=== PATIENT | male | born 1985 | race Caucasian/White ===

== ENCOUNTER 2020-10-13 16:06 | Inpatient (IN) | payer MEDICAID ==
[~2020-10-13] VITALS: Ht 152.4 cm; Wt 85.3 kg
[2020-10-13] MEDS ORDERED: MAGNESIUM HYDROXIDE 30 ML UDC PO PRN (16:30)
[2020-10-13] MEDS ORDERED: Z GUARD REMEDY 2 OZ OINT TP PRN (16:30)
[2020-10-13] MEDS ORDERED: MAG HYDROX/AL HYDROX/SIMETH 30 ML UDC PO PRN (16:30)
[2020-10-13] MEDS ORDERED: ONDANSETRON HCL/PF 4 MG/2 ML VIAL IVP PRN (16:30)
[2020-10-13] MEDS ORDERED: ACETAMINOPHEN 325 MG TABLET PO PRN (16:30)
[2020-10-13] MEDS ORDERED: ZOLPIDEM TARTRATE 5 MG TABLET PO PRN (16:30)
[2020-10-13 17:00] VITALS: BP 148/90
[2020-10-13 17:36] VITALS: BP 148/90
[2020-10-13] MEDS: IV NS 0.9% 1,000 ML IV PRN (17:59)
[2020-10-13] MEDS ORDERED: PIPERACILLIN /TAZOBACTAM 4.5 G in IV D5W 50 ML IV SCH (18:00)
[2020-10-13 20:00] VITALS: BP 141/81
[2020-10-13] MEDS: MORPHINE SULFATE INJ 2 MG/ML DISP.SYRIN IV PRN (20:04)
[2020-10-14] MEDS: MORPHINE SULFATE INJ 2 MG/ML DISP.SYRIN IV PRN (00:25)
[2020-10-14] MEDS: IV NS 0.9% 1,000 ML IV PRN (03:22)
[2020-10-14 06:37] LABS: BASOPHILS # (AUTO) 0.1 K/uL (0.0-0.2); BASOPHILS % (AUTO) 0.7 % (0.0-2.0); EOSINOPHILS % (AUTO) 0.5 % (0.0-6.0); HEMATOCRIT 45 % (39-51); HEMOGLOBIN 15.3 g/dL (13.5-17.5); LYMPHOCYTES # (AUTO) 1.8 K/uL (0.8-4.8); LYMPHOCYTES % (AUTO) 14.3 % (20.0-44.0); MEAN CORPUSCULAR HGB CONC 34 g/dl (31.0-36.0); MEAN CORPUSCULAR VOLUME 86 fL (80-96); NEUTROPHILS # (AUTO) 9.4 K/uL (1.8-8.9); NEUTROPHILS % (AUTO) 76.5 % (43.0-81.0); PLATELET COUNT (AUTO) 329 K/uL (150-450); RED BLOOD CELL COUNT(AUTO) 5.18 MIL/uL (4.5-6.0); WHITE BLOOD COUNT (AUTO) 12.3 K/uL (4.3-11.0)
[2020-10-14 07:04] LABS: ALBUMIN 3.9 g/dL (3.4-5.0); BILIRUBIN,TOTAL 1.5 mg/dL (0.2-1.0); CALCIUM, SERUM 8.1 mg/dL (8.5-10.1); MAGNESIUM 1.9 mg/dL (1.8-2.4); PHOSPHORUS 3.3 mg/dL (2.5-4.9); POTASSIUM 3.8 mmol/L (3.5-5.1); TOTAL PROTEIN, SERUM 7.7 g/dL (6.4-8.2)
--- NOTE | 2020-10-14 07:25 | NUR ---
RN OPENING NOTE RECEIVED PATIENT IN BED. A/O X4. ON ROOM AIR, NO SOB NOTED. IN NO APPARENT DISTRESS. DENIES ANY PAIN OR DISCOMFORT AT THIS TIME. CURRENTLY ON NPO STATUS FOR NM HIDA SCAN. IV ACCESS ON L AC #20 G, NS @ 75 ML/HR, INTACT AND PATENT. SAFETY MEASURES MAINTAINED. BED IN LOWEST POSITION, BRAKES LOCKED. SIDE RAILS UP X2,. CALL LIGHT WITHIN REACH. WILL CONTINUE PLAN OF CARE.
[2020-10-14 08:22] VITALS: BP 136/71
[2020-10-14] MEDS: PIPERACILLIN /TAZOBACTAM 3.375 G in IV D5W 100 ML IV SCH ×4 (08:31→23:18)
--- NOTE | 2020-10-14 09:55 | NUR ---
Patient went for HIDA scan at 9:52am via wheelchair, stable condition, no apparent distress noted, denies any pain or discomfort at this time.
--- NOTE | 2020-10-14 11:30 | NUR ---
Patient came back from HIDA scan around 11:27am, per Abel (from radiology department), gallbladder was not seen at will do a delayed around 2pm, patient to remain NPO and also Morphine cannot be given yet until procedure is done. and patient made aware of the situation. Patient has no complaints of pain at this time, will monitor closely for any changes, all needs attended, call light left within reach.
[2020-10-14 13:12] LABS: BILIRUBIN,DIRECT 0.3 mg/dL (0.0-0.2); BILIRUBIN,TOTAL 1.4 mg/dL (0.2-1.0)
--- NOTE | 2020-10-14 14:05 | NUR ---
Patient went for HIDA scan at 14:04 via wheelchair, stable condition, denies any pain or discomfort at this time.
--- NOTE | 2020-10-14 15:00 | NUR ---
Patient came back from HIDA scan at 15:00 stable condition, no apparent distress, can resume previous diet and advance as tolerated.
[2020-10-14 16:06] VITALS: BP 134/80
--- NOTE | 2020-10-14 18:43 | NUR ---
RN CLOSING NOTES Patient comfortably lying in bed, AOX4, able to follow commands, can make needs known. Respirations even and unlabored, no SOB, no apparent distress, denies any pain or discomfort at this time. Patient now back to clear liquid diet, abdominal bowel sounds present in all quadrants. IV site on L AC #20G with ongoing NS @ 75 ml/hr, intact and patent, no s/s of infiltration noted. Safety measures maintained, bed set in lowest position. All needs attended and met, call light left within reach, will endorse continuity of care to incoming shift.
--- NOTE | 2020-10-14 19:30 | NUR ---
RN OPENING NOTE PATIENT IS IN BED, AWAKE. PATIENT IS ABLE TO MAKE NEEDS KNOWN. TOLERATES ROOM AIR, BREATHING EVEN AND UNLABORED. PATIENT HAS A LEFT AC 20 G RUNNING NS AT 75 ML/HR. PATIENT DOES NOT COMPLAIN OF ANY PAIN AT THIS TIME. SAFETY MEASURES IN PLACE: BED LOCKED AND IN LOWEST POSITION, CALL LIGHT WITHIN REACH, SIDE RAILS UP. WILL MONITOR PATIENT CLOSELY.
[2020-10-14 20:00] VITALS: BP 134/77
--- NOTE | 2020-10-15 07:20 | NUR ---
RN NOTE PATIENT BREATHING EVEN AND UNLABORED, NOT IN ANY APPARENT DISTRESS. SAFETY MEASURES IN PLACE: ENDORSED TO DAY SHIFT NURSE FOR DIANNA.
--- NOTE | 2020-10-15 07:57 | NUR ---
MS/RN OPENING NOTE RECEIVED PATIENT IN BED, A/O X4, JAPANESE SPEAKING. PATIENT IS ABLE TO MAKE NEEDS KNOWN. TOLERATES ROOM AIR, BREATHING EVEN AND UNLABORED. PATIENT HAS A LEFT AC #20G WITH A RUNNING NS AT 75 ML/HR. PATIENT DOES NOT COMPLAIN OF ANY PAIN AT THIS TIME. SAFETY MEASURES IN PLACE: BED LOCKED AND IN LOWEST POSITION, CALL LIGHT WITHIN REACH, SIDE RAILS UP. WILL CONTINUE TO MONITOR.
[2020-10-15 08:00] VITALS: BP 118/66
[2020-10-15] MEDS: PIPERACILLIN /TAZOBACTAM 3.375 G in IV D5W 100 ML IV SCH ×2 (08:36→15:47)
[2020-10-15 13:19] LABS: BASOPHILS # (AUTO) 0.1 K/uL (0.0-0.2); BASOPHILS % (AUTO) 1.1 % (0.0-2.0); EOSINOPHILS % (AUTO) 3.5 % (0.0-6.0); HEMATOCRIT 44 % (39-51); HEMOGLOBIN 15.6 g/dL (13.5-17.5); LYMPHOCYTES # (AUTO) 2.5 K/uL (0.8-4.8); LYMPHOCYTES % (AUTO) 34.6 % (20.0-44.0); MEAN CORPUSCULAR HGB CONC 35 g/dl (31.0-36.0); MEAN CORPUSCULAR VOLUME 86 fL (80-96); MONOCYTES # (AUTO) 0.7 K/uL (0.1-1.30); MONOCYTES % (AUTO) 9.6 % (2.0-12.0); NEUTROPHILS # (AUTO) 3.7 K/uL (1.8-8.9); NEUTROPHILS % (AUTO) 51.2 % (43.0-81.0); PLATELET COUNT (AUTO) 296 K/uL (150-450); RED BLOOD CELL COUNT(AUTO) 5.17 MIL/uL (4.5-6.0); WHITE BLOOD COUNT (AUTO) 7.3 K/uL (4.3-11.0)
[2020-10-15 13:40] LABS: ALBUMIN 3.7 g/dL (3.4-5.0); BILIRUBIN,TOTAL 1.8 mg/dL (0.2-1.0); CALCIUM, SERUM 8.9 mg/dL (8.5-10.1); CREATININE 1.2 mg/dL (0.6-1.3); POTASSIUM 3.9 mmol/L (3.5-5.1); TOTAL PROTEIN, SERUM 7.9 g/dL (6.4-8.2)
[2020-10-15] MEDS: IV NS 0.9% 1,000 ML IV PRN (15:47)
[2020-10-15 16:00] VITALS: BP 115/68
--- NOTE | 2020-10-15 18:55 | NUR ---
MS/RN CLOSING NOTE PATIENT IN BED, A/O X4, [place] SPEAKING. PATIENT IS ABLE TO MAKE NEEDS KNOWN. TOLERATES ROOM AIR, BREATHING EVEN AND UNLABORED. ON NPO FOR UPCOMING SURGERY. PATIENT HAS A LEFT AC #20G WITH A RUNNING NS AT 75 ML/HR. PATIENT DOES NOT COMPLAIN OF ANY PAIN AT THIS TIME. SAFETY MEASURES IN PLACE: BED LOCKED AND IN LOWEST POSITION, CALL LIGHT WITHIN REACH, SIDE RAILS UP. WILL ENDORSE TO THE NEXT SHIFT FOR DIANNA.
--- NOTE | 2020-10-15 19:15 | NUR ---
MS RN OPENING NOTES: RECEIVED PATIENT IN BED, AWAKE, A/O X4. NO S/S OF DISTRESS NOTED. CALL LIGHT WITHIN REACH. BED IN LOWEST AND LOCKED POSITION. NPO, PATIENT AWARE, AND [employer] CONTR[employer] ROOM OPERATOR AWARE. INFORMED PATIENT THAT SURGERY MIGHT BE TONIGHT.
[2020-10-15 20:00] VITALS: BP 117/75
[2020-10-16] MEDS: PIPERACILLIN /TAZOBACTAM 3.375 G in IV D5W 100 ML IV SCH ×3 (01:52→15:33)
--- NOTE | 2020-10-16 07:18 | NUR ---
RN OPENING NOTE- PATIENT IN BED, EASILY AWAKENED, A/O X4, [place] SPEAKING. PATIENT IS ABLE TO MAKE NEEDS KNOWN. TOLERATES ROOM AIR, BREATHING EVEN AND UNLABORED. PATIENT HAS A LEFT AC #20G WITH A RUNNING NS AT 75 ML/HR. PT DENIES PAIN. SAFETY MEASURES IN PLACE: BED LOCKED AND IN LOWEST POSITION, CALL LIGHT WITHIN REACH, SIDE RAILS UP. WILL CONTINUE TO MONITOR. ASSIST NEEDED.
[2020-10-16 08:00] VITALS: BP 119/64
[2020-10-16] MEDS ORDERED: MIDAZOLAM HCL 2 MG/2ML VIAL ONE (15:23)
[2020-10-16] MEDS ORDERED: FENTANYL PF 250MCG/5ML AMPUL ONE (15:23)
[2020-10-16] MEDS ORDERED: FENTANYL PF 100MCG/2ML AMPUL ONE (15:23)
[2020-10-16] MEDS ORDERED: FAMOTIDINE/PF INJ 20 MG/2 ML VIAL IV ONE (15:24)
[2020-10-16] MEDS ORDERED: HYDROMORPHONE INJ 2 MG/ML DISP.SYRIN ONE (15:24)
[2020-10-16] MEDS ORDERED: ROCURONIUM BROMIDE 50 MG/5 ML ONE (15:25)
--- NOTE | 2020-10-16 15:33 | NUR ---
RN NOTE- PT CONSENTS SIGNED AND READIED FOR CHOLECYSTECTOMY. PT BEING TRANSPORTED NOW FOR PROCEDURE. IV ABX HELD AT PRESENT. Addendum: 10/16/20 at 1545 by LEXI STARR RN ANTIBIOTIC IV ZOSYN 1600 DOSE SENT TO SURGERY W PT TO BE INFUSED
[2020-10-16] MEDS ORDERED: LIDOCAINE 1% INJ 50 ML MDV IJ ONE (15:53)
[2020-10-16] MEDS ORDERED: BUPIVACAINE MPF 0.5% W/EPI INJ 30 ML VIAL ONE (15:54)
--- NOTE | 2020-10-16 18:25 | NUR ---
RN NOTE- PT RETURNS FROM PROCEDURE. CHOLECYSTECTOMY COMPLETED. PT W JENNIFER FOX DRAIN W SEROUS DRAINAGE OF SCANT AMOUNT. PT SLEEPING THOUGH CAN BE AWAKENED. IN NO DISTRESS. AT BEDSIDE. ORDERS WRITTEN AND COMPLIED WITH. VS- BP- 150/84, HR- 69, RR- 16, T- 98.0. O2 SATS 100% RA
[2020-10-16 20:00] VITALS: BP 138/71
--- NOTE | 2020-10-16 20:00 | NUR ---
Patient is A&Ox4. VSS. Patient reminded to press call light when he needs pain medication because pain medications is "as needed". TIFFANIE drain noted with scant amount of serosanguineous output. Will reassess amount at middle and end of shift. IVF infusing at this time. IV is patent and intact. Patient reports no other issues at this time.
[2020-10-16] MEDS: MORPHINE SULFATE INJ 2 MG/ML DISP.SYRIN IV PRN (22:33)
[2020-10-17] MEDS: PIPERACILLIN /TAZOBACTAM 3.375 G in IV D5W 100 ML IV SCH ×4 (00:02→23:43)
[2020-10-17] MEDS: MORPHINE SULFATE INJ 2 MG/ML DISP.SYRIN IV PRN ×2 (03:14→23:20)
[2020-10-17] MEDS: IV NS 0.9% 1,000 ML IV PRN (04:06)
[2020-10-17 06:11] LABS: BASOPHILS # (AUTO) 0.1 K/uL (0.0-0.2); BASOPHILS % (AUTO) 0.5 % (0.0-2.0); EOSINOPHILS % (AUTO) 0.2 % (0.0-6.0); HEMATOCRIT 41 % (39-51); HEMOGLOBIN 14.1 g/dL (13.5-17.5); LYMPHOCYTES # (AUTO) 1.1 K/uL (0.8-4.8); LYMPHOCYTES % (AUTO) 8.4 % (20.0-44.0); MEAN CORPUSCULAR HGB CONC 35 g/dl (31.0-36.0); MEAN CORPUSCULAR VOLUME 86 fL (80-96); MONOCYTES # (AUTO) 0.8 K/uL (0.1-1.30); MONOCYTES % (AUTO) 5.9 % (2.0-12.0); NEUTROPHILS # (AUTO) 11.2 K/uL (1.8-8.9); PLATELET COUNT (AUTO) 320 K/uL (150-450); RED BLOOD CELL COUNT(AUTO) 4.77 MIL/uL (4.5-6.0); WHITE BLOOD COUNT (AUTO) 13.2 K/uL (4.3-11.0)
--- NOTE | 2020-10-17 06:31 | NUR ---
MS RN CLOSING NOTES Patient is A&Ox4. VSS. Medicated twice for pt c/o abdominal pain with PRN Morphine s/p cholecystectomy. Patient voided x1 clear anderson. TIFFANIE drain 10cc serosanguineous fluid. Tolerating clear liquid diet well. NS infusing currently at 75cc/hr IV LAC #20G intact and patent. Tolerating IV ABX well.
[2020-10-17 06:33] LABS: ALBUMIN 3.4 g/dL (3.4-5.0); BILIRUBIN,TOTAL 1.3 mg/dL (0.2-1.0); CALCIUM, SERUM 8.3 mg/dL (8.5-10.1); CREATININE 1.2 mg/dL (0.6-1.3); POTASSIUM 4.3 mmol/L (3.5-5.1); TOTAL PROTEIN, SERUM 7.5 g/dL (6.4-8.2)
[2020-10-17 08:16] VITALS: BP 132/70
[2020-10-17 16:03] VITALS: BP 122/77
--- NOTE | 2020-10-17 19:35 | NUR ---
MSRN FULLY AWAKE, PRESENT IVF INFUSING WELL. LAPSITES DRESSING D/I. TIFFANIE DRAIN TO GRAVITY, EMPTIED 20 CC SEROSANGUINOUS DRAINAGE. KEPT COMFORTABLE. PLAN OF CARE AND MEDICATION REGIMEN DISCUSSED WITH PATIENT IN BASIC KHMER, APPEARS TO UNDERSTAND. DENIES PAIN OF THIS TIME, WILL CALL IF NEEDED . CALL LIGHT WITHIN REACH, CLOSELY WATCHED.
[2020-10-17 20:00] VITALS: BP 122/60
--- NOTE | 2020-10-17 23:20 | NUR ---
MSRN VERBALIZES ABDOMINAL PAIN SCALE OF 8/10. MORPHINE 1 MG IVP ADMINISTERED ORDERED. BEDREST FOR NOW, REMINDED TO CALL STAFF FOR ANY FURTHER DISCOMFORTS.
--- NOTE | 2020-10-17 23:58 | NUR ---
MSRN RELIEF OF PAIN OF THIS TIME, WENT BACK TO SLEEP. CLOSELY WATCHED.
--- NOTE | 2020-10-18 06:58 | NUR ---
MSRN SLEPT WELL THE WHOLE NIGHT. 60 CC FROM TIFFANIE DRAIN OBTAINED.. NO NEEDS MADE.
[2020-10-18] MEDS: PIPERACILLIN /TAZOBACTAM 3.375 G in IV D5W 100 ML IV SCH (07:55)
[2020-10-18 08:15] VITALS: BP 120/72
[2020-10-18 12:00] VITALS: BP 128/62
--- NOTE | 2020-10-18 15:00 | NUR ---
dr. kurtz in dc order given.
[2020-10-18 16:08] VITALS: BP 117/66
--- NOTE | 2020-10-18 17:30 | NUR ---
[employer] manager gave orders to dc with brandon mcpherson and instruct pt. on use and to follow up with surgeon in one week.rn did so. abd. dressings dry and intact.
--- NOTE | 2020-10-18 18:00 | NUR ---
received pt. in am alert and oriented x4.guamanian speaking.iv infusing brandon bulb to drainage Addendum: 10/18/20 at 6 by AURA ROMERO RN above entry to be at 900 am.
--- NOTE | 2020-10-18 19:45 | NUR ---
MS RN NOTE PATIENT LEFT AT THIS TIME WITH FAMILY MEMBER. WENT DOWN VIA WHEELCHAIR, ASSISTED BY ME. PATIENT AND FAMILY MEMBER LEFT VIA PRIVATE TRANSPORTATION. DISCHARGE PACKET WITH FAMILY MEMBER. NO ID BAND ON. NO IV LINES ON PATIENT. NO S/S OF APPARENT DISTRESS. NO C/O PAIN. PATIENT A/OX4 WHEN HE LEFT.
== END 2020-10-18 19:45 | disposition home or self-care (01) | DRG 263 ==
LOC: MED 16:06
PROVIDERS: ADMIT Internal Medicine
PROC: 0FT44ZZ Resection of Gallbladder, Percutaneous Endoscopic Approach (ICD-10-PCS; principal; 2020-10-16)
PROC: 0FB04ZX Excision of Liver, Percutaneous Endoscopic Approach, Diagnostic (ICD-10-PCS; 2020-10-16)
DX: K80.00 Calculus of gallbladder with acute cholecystitis without obstruction (principal); D72.829 Elevated white blood cell count, unspecified; E66.9 Obesity, unspecified; Z87.19 Personal history of other diseases of the digestive system; Z68.37 Body mass index [BMI] 37.0-37.9, adult
CPT/HCPCS: 36415; 76700-TC; 78226; 80053-TC; 80061-TC; 82247-TC; 82248-TC; 83735-TC; 84100-TC; 85025-TC; 85730-TC; 87081-TC; 88304-TC; A9537; G0378; J1100; J1170; J2250; J2270; J2405; J2543; J2704; J2765; J3010; J3490; J7030; J7050; J7060